=== PATIENT | female | born 1970 | race Caucasian/White ===

== ENCOUNTER 2021-11-22 02:16 | Day surgery (SDC) | payer BC, SELFPAY ==
[2021-11-04 13:27] VITALS: BMI 27.1
[2021-11-22 08:13] VITALS: BP 116/59; PULSE 70; RESP 20; TEMP 36.2; O2SAT 100; BMI 25.5
[2021-11-22] MEDS: LACTATED RINGERS 1,000 ML 150 ML IV CONT (08:20)
--- NOTE | 2021-11-22 08:43 | P.PNAN_ITS ---
Anes - Initial Pre Proc Eval Procedure: Operation Date: 11/22/21 09:00 Proposed Procedures p Screening Colonoscopy - Alvaro Cruz MD Date/Time: 11/22/21 08:43 Surgeon: Alvaro Cruz MD Pre Op Diagnosis: neoplasm screening Patient Data Age: 51 Gender: F Height: 1.78 m Weight: 80.9 kg Last Vital Signs Temp 97.2 F L 11/22/21 08:13 Pulse 70 11/22/21 08:13 Resp 20 11/22/21 08:13 BP 116/59 L 11/22/21 08:13 Pulse Ox 100 11/22/21 08:13 O2 Del Method Room Air 11/22/21 08:13 Allergies Allergy/AdvReac Type Severity Reaction Status Date / Time No Known Allergies Allergy Verified 11/22/21 08:12 Home Medications Medication Instructions Recorded Confirmed Type multivitamin 1 tablet PO DAILY 09/07/20 11/04/21 History Patient hx anesthesia problems: none Family hx anesthesia problems: none Results Review: All pre-operative results and documents have been reviewed as part of the pre- operative evaluation. [facility] Past Medical History Medical History Hip pain Vision loss Surgical History Surgical History H/O LEEP History of hip surgery right side 01/07/19 Left ACL tear 1sept 1997 Lump of right breast may 2009 Family History Family History Father Family history of Parkinson's disease Mother Thyroid disorder Sibling Thyroid disorder Grandparent Heart disease Thyroid disorder Other Family history of cardiovascular disease Family history of thyroid disease Social History Social History Smoking status: Never smoker Second hand tobacco smoke exposure: No Alcohol intake: current Drinks per week: 1 Alcohol use details: beer Substance use: never Substance use type: does not use Living arrangements: with family Gender identity (if verbalized by the patient): Female Spiritual care concerns: No Agree to blood products: Yes Anes - Eval Final PreProcedure Day of Procedure 11/22/21 08:43 Patient weight: normal Heart: regular rate and rhythm Lungs: clear to auscultation Airway: Mallampati scale class II Neurological: alert and oriented Last oral intake: >/= 8 hours ASA classification: II Emergent: no Anesthetic plan: proceed Anesthesia type and monitoring: general GIVS and standard monitoring Results Review: All pre-operative results and documents have been reviewed as part of the pre- operative evaluation. Informed Consent: The patient's anesthetic plan and its attendant risks and benefits were discussed with the patient/family/POA. Questions were solicited and answers provided to the satisfaction of the patient/family/POA.
--- NOTE | 2021-11-22 08:48 | WPDGICN ---
Assessment and Plan Assessment and plan (1) Encounter for screening colonoscopy: Code(s): Z12.11 - Encounter for screening for malignant neoplasm of colon Status: Acute Assessment and Plan: Patient presents today for screening colonoscopy. She appears to be at average risk for colon polyps. GI Consult Note Consult date/time: 11/22/21 08:48 Reason for consult: Neoplasia screening. HPI: Katarina Choi is a 51 year old female Presents for screening colonoscopy. Patient appears to be at average risk for colon polyps. She states her current weight appetite bowel movements are normal. Patient denies abdominal pain. She has had no bleeding. Family history is noncontributory. Review of Systems Review of Systems: Review of systems noncontributory. [facility] Past Medical History Medical History Hip pain Vision loss Surgical History Surgical History H/O LEEP History of hip surgery right side 01/07/19 Left ACL tear 1s1997 Lump of right breast may 2009 Family History Family History Father Family history of Parkinson's disease Mother Thyroid disorder Sibling Thyroid disorder Grandparent Heart disease Thyroid disorder Other Family history of cardiovascular disease Family history of thyroid disease Social History Social History Smoking status: Never smoker Second hand tobacco smoke exposure: No Alcohol intake: current Drinks per week: 1 Alcohol use details: beer Substance use: never Substance use type: does not use Living arrangements: with family Gender identity (if verbalized by the patient): Female Spiritual care concerns: No Agree to blood products: Yes Meds Home Medications and Allergies Home Medications Medication Instructions Recorded Confirmed Type multivitamin 1 tablet PO DAILY 09/07/20 11/04/21 History Allergies Allergy/AdvReac Type Severity Reaction Status Date / Time No Known Allergies Allergy Verified 11/22/21 08:12 Vital Signs Vital Signs - 24 hr 11/22/21 08:13 Temperature 97.2 F L Pulse Rate 70 Respiratory Rate 20 Blood Pressure 116/59 L Pulse Oximetry 100 Oxygen Delivery Room Air Exam Narrative: Physical exam reveals patient to be alert. Vital signs stable. HEENT exam is unremarkable. Patient is anicteric. Lungs are clear to auscultation and percussion. Heart is without murmur or extra sounds. Abdominal exam bowel sounds are present soft nontender with no organomegaly. Digital external rectal exam is normal.
[2021-11-22 09:15] VITALS: BP 94/59; PULSE 59; RESP 20; O2SAT 99
[2021-11-22 09:25] VITALS: BP 94/59; PULSE 58; RESP 21; O2SAT 99
[2021-11-22 09:35] VITALS: BP 194/58; PULSE 52; RESP 19; O2SAT 100
== END 2021-11-22 09:46 | disposition home or self-care (01) ==
PROVIDERS: PCP Family Medicine; Visit Provider Internal Medicine Gastroenterology
PROC: 0DJD8ZZ Inspection of Lower Intestinal Tract, Via Natural or Artificial Opening Endoscopic (ICD-10-PCS; CPT 45378; principal; 2021-11-22 09:00)
DX: Z12.11 Encounter for screening for malignant neoplasm of colon (principal)
CPT/HCPCS: 45378; J2704; J7120

== ENCOUNTER 2023-11-20 09:02 | Outpatient (CLI) | payer OTHER, SELFPAY ==
--- NOTE | ~2023-11-20 | CT_ITS ---
EXAMINATION: CT knee LT wo con DATE: 11/20/2023 09:20 INDICATION: Unilateral posttraumatic osteoarthritis, left knee. TECHNIQUE: Computed tomography (CT) of the left knee was performed without intravenous contrast. Auto mated exposure control and iterative reconstruction technique were employed. The dose-length product was 192.19 mGy-cm. COMPARISON: Left knee radiographs 01/05/2023 FINDINGS: There is lateral subluxation of tibia with respect to distal femur. No fracture. There are changes of anterior cruciate ligament reconstruction. The orientation of the bones suggests the graft is torn. There is severe osteoarthritis of lateral compartment and mild osteoarthritis of medial and patellofemoral compartments. There is a moderate-sized knee joint effusion with large loose body. Th ere is a large Núñez's cyst. IMPRESSION: 1. Severe left knee osteoarthritis. 2. Torn anterior cruciate ligament reconstruction. 3. Moderate-sized knee joint effusion with loose body. 4. Large Núñez's cyst. Reviewed, dictated and finalized at location A.
== END 2023-11-20 09:03 ==
PROVIDERS: PCP Orthopaedic Surgery; Visit Provider Orthopaedic Surgery
DX: M17.32 Unilateral post-traumatic osteoarthritis, left knee (principal); S83.512A Sprain of anterior cruciate ligament of left knee, initial encounter; M25.462 Effusion, left knee; M23.42 Loose body in knee, left knee; M71.22 Synovial cyst of popliteal space [Baker], left knee
CPT/HCPCS: 73700

== ENCOUNTER 2024-04-05 13:59 | Outpatient (CLI) | payer OTHER, SELFPAY ==
[2024-04-05 15:52] LABS: Add Urine Microscopic? YES; Appearance Urine Clear (Clear); Bacteria Urine None Seen /hpf; Bilirubin Urine Negative (Negative); Blood Urine 1+ (Negative); Color Urine Yellow (Yellow); Glucose Urine UA Negative (Negative); Ketones Urine Negative (Negative); Leukocyte Esterase Ur Negative LEU/UL (Negative); Nitrate Urine Negative (Negative); Non Pathogenic Casts 0-2; Protein Urine Negative (Negative); RBC Urine 0-2 /hpf (0-2); Specific Grav Ur 1.006 (1.001-1.035); Squamous Epithelial Cell Urine None Seen /hpf (Few); Urobilinogen Urine 0.2 mg/dL (<2.0); WBC Urine 0-5 /hpf (0-3); pH Urine 5.5 (5.0-9.0)
[2024-04-05 15:54] LABS: Urine Cotinine NEGATIVE
[2024-04-05 16:13] LABS: INR 0.9; Partial Thromboplastin Time 27.9 Seconds (22.3-36.8)
[2024-04-05 16:54] LABS: MRSA (PCR) NOT DETECTED (NOT DETECTE)
== END 2024-04-05 14:00 | disposition home or self-care (01) ==
PROVIDERS: Visit Provider Orthopaedic Surgery
DX: Z01.812 Encounter for preprocedural laboratory examination (principal); M17.12 Unilateral primary osteoarthritis, left knee; I10 Essential (primary) hypertension; R53.83 Other fatigue
CPT/HCPCS: 80307; 81001; 85610; 85730; 86850; 86900; 86901; 87641

== ENCOUNTER 2024-04-18 14:56 | Observation (INO) | payer OTHER, SELFPAY ==
[2024-04-05 14:26] VITALS: BP 141/80; PULSE 57; RESP 16; TEMP 36.4; O2SAT 100; BMI 26.9
--- NOTE | 2024-04-05 14:42 | PC.NURSE ---
Report to the Outpatient Waiting Room, entrance under the green pavilion located off [facility], at time ___8:30AM____ on date ___04/17/24____. Planned Procedure Time: __10:30AM .? Time changes happen often and if your time is changed the preop area will call you the afternoon before. - You and your visitor will be asked to self-screen and do not enter if you have any COVID symptoms. Please call surgeon if you need to reschedule. - A mask is optional within the hospital at this time. Patients may have clear liquids (water, carbonated beverages, clear teas, apple juice) until 3 hours prior to surgery with a maximum of 20 ounces. - No food from midnight until time of surgery and no smoking. Take only the following medications with a SIP of water on the morning of surgery: NONE DO NOT STOP ANY OF YOUR OTHER PRESCRIPTION MEDICATIONS PRIOR TO SURGERY EXCEPT THE FOLLOWING Medications to discontinue per physician HOLD ALL VITAMINS/SUPPLEMENTS 3 DAYS PER ANESTHESIA Date to take last dose 04/13/24 Please no make-up, nail romansh, hairspray, perfume, deodorant, or body powder the day of surgery.? No jewelry (including any body piercings) or valuables the day of surgery, leave them at home.? Please take a shower or bath the night before, or the morning of, surgery with an antibacterial soap.? Wear comfortable, loose fitting clothing.? - Jewelry must be removed prior to entering the operating room.? Rings and piercings that are not removed may be cut off. - The hospital will not accept responsibility for valuables.? - Please leave all valuables, including medications, at home the day of surgery. If you are going home after surgery, a licensed concrete mixing truck driver must drive you home.? - NO public transportation without another adult if you receive anesthesia. - We recommend that an adult stay with you for 24 hours following discharge. - We also recommend that you do not drive, make important decision, drink alcoholic beverages, or take any drugs that were not prescribed by your health care provider for at least 24 hours after your discharge time. Follow any additional instructions given to you from your surgeon. Telephone instructions given to ____PATIENT and asked if any additional questions and then verbalized understanding. Patient advised to call surgeon office or pre surgery nurse liaison [phone] if any additional questions.
[2024-04-17] VITALS (9 sets, daily range): BP systolic 116–139; BP diastolic 67–80; PULSE 58–79; RESP 12–18; TEMP 36.4–36.7; O2SAT 98–100
--- NOTE | 2024-04-17 07:04 | WPDHPUPDATE1 ---
History and Physical Update Update Date/Time: 04/17/24 07:04 History and Physical has been reviewed, including an updated exam of the patient. There are NO changes in the patient's condition. Risks, benefits, and alternatives have been discussed and questions answered. Patient agrees to proceed with procedure.
[2024-04-17] MEDS: ACETAMINOPHEN 500 MG TABLET 1000 MG PO (08:56)
[2024-04-17] MEDS: LACTATED RINGERS 1,000 ML 30 ML IV CONT ×2 (09:15→13:41)
[2024-04-17] MEDS: TRANEXAMIC ACID 1,000MG/ISO100 1,000 MG/100 ML BAG 200 MG IVPB (10:10)
--- NOTE | 2024-04-17 10:25 | WPDANESPNB ---
Anes - Peripheral Nerve Block Date/Time: 04/17/24 10:25 I have discussed with the patient/family/POA the placement of a peripheral nerve block for post-operative pain management, including associated risks, benefits, complications, and side effects. Alternative methods of post-operative analgesia were detailed. Questions were solicited and answers provided to the satisfaction of the patient/family/POA. Time-Out: A pre-procedural Time-Out was completed immediately before starting the procedure and confirmed: Patient Identification, Site, Procedure, Patient Position and the Availability of Requisite Equipment. Clinical Indications: Acute post-operative pain management requested by the operative surgeon. Nerve Block Insertion Note Anes-nerve block: adductor canal left Patient position: supine Skin prep: chlorhexidine Needle: 22 gauge, stimulating, insulated echogenic needle. Needle length: 80 mm Technique: ultrasound Injectate: other (Bupiv 0.5% 15 mls. ) Observations: tolerated well Complications: none Procedure start time:: 101 Procedure end time:: 1020
--- NOTE | 2024-04-17 10:33 | P.PNAN_ITS ---
Anes - Initial Pre Proc Eval Procedure: Operation Date: 04/17/24 10:30 Proposed Procedures p Left Total Knee Arthroplasty, Removal of Hardware Left Knee - Filippo Ca MD Date/Time: 04/17/24 10:33 Surgeon: Filippo Ca MD Pre Op Diagnosis: Left Knee DJD Patient Data Age: 54 Gender: F Height: 1.78 m Weight: 85.15 kg Last Vital Signs Temp 97.7 F 04/17/24 09:17 Pulse 62 04/17/24 09:17 Resp 16 04/17/24 09:17 BP 135/72 04/17/24 09:17 Pulse Ox 100 04/17/24 09:17 O2 Del Method Room Air 04/17/24 09:17 Allergies Allergy/AdvReac Type Severity Reaction Status Date / Time No Known Allergies Allergy Verified 04/17/24 08:38 Home Medications Medication Instructions Recorded Confirmed Type chlorhexidine gluconate 4 % 1 applic topical DAILY #237 mL 04/05/24 04/17/24 Rx topical liquid (Hibiclens) ferrous sulfate 325 mg (65 mg 325 mg PO EVERY OTHER DAY 04/05/24 04/17/24 History iron) capsule,extended release [id number] 250 mg-dha 90 1 cap PO DAILY 04/05/24 04/17/24 History mg-epa 160 [id number] capsule (Ocuvite Adult 50 Plus) multivitamin with minerals-folic 2 tablet PO DAILY 04/05/24 04/17/24 History acid 150 mcg chewable tablet tranexamic acid 650 mg tablet 1,300 mg PO TID 04/05/24 04/17/24 History Patient hx anesthesia problems: none Family hx anesthesia problems: none Results Review: All pre-operative results and documents have been reviewed as part of the pre- operative evaluation. [facility] Past Medical History Medical History Hip pain Vision loss Surgical History Surgical History H/O LEEP History of colonoscopy 11/22/21 - repeat 10 years History of hip surgery right side 01/07/19 Left ACL tear 1sept 1997 Lump of right breast may 2009 Family History Family History Father Family history of Parkinson's disease Mother Thyroid disorder Sibling Thyroid disorder Grandparent Heart disease Thyroid disorder Other Family history of cardiovascular disease Family history of thyroid disease Social History Social History Smoking status: Never smoker Second hand tobacco smoke exposure: No Alcohol intake: current Drinks per week: 2 Alcohol use details: beer Substance use: never Substance use type: does not use Living arrangements: with family Additional living arrangements comments: SPOUSE & DAUGHTER Occupation/Education: occupation Gender identity (if verbalized by the patient): Female Spiritual care concerns: No Agree to blood products: Yes Anes - Eval Final PreProcedure Day of Procedure 04/17/24 10:33 Patient weight: normal Heart: regular rate and rhythm Lungs: clear to auscultation Airway: Mallampati scale class II Neurological: alert and oriented Last oral intake: >/= 8 hours ASA classification: I Emergent: no Anesthetic plan: proceed Anesthesia type and monitoring: general LMA and standard monitoring Results Review: All pre-operative results and documents have been reviewed as part of the pre- operative evaluation. Overall good health. Informed Consent: The patient's anesthetic plan and its attendant risks and benefits were discussed with the patient/family/POA. Questions were solicited and answers provided to the satisfaction of the patient/family/POA.
[2024-04-17] MEDS: ceFAZolin 2 GM/D5W 50 ML 2 GM/50 ML BAG IVPB ×2 (10:41→18:09)
[2024-04-17] MEDS: SODIUM CHLORIDE 0.9% IV 37.7 ML, MORPHINE SULFATE INJ (*CRX) 2 MG, ROPivacaine HCL 1% 2... INFILTRATE (11:17)
[2024-04-17] MEDS: TRANEXAMIC ACID 1,000 MG/10 ML AMPUL 1000 MG IV PUSH (12:39)
--- NOTE | 2024-04-17 13:59 | W.PM.PROC2 ---
Procedure Note - Detailed Date of Procedure 04/17/24 Pre-op Diagnosis Left Knee DJD, RETAINED HARDWARE Post-op Diagnosis Same Procedure Performed LEFT TKA, HARDWARE REMOVAL LEFT KNEE Surgeon Filippo Ca MD Anesthesia General Indications LEFT KNEE SEVERE DJD WITH RETAINED HARDWARE Description of Procedure THE LEFT KNEE WAS PREPPED AND DRAPED IN THE STERILE FASHION. A MIDLINE SKIN INCISION WAS MADE. A MEDIAL PARAPATELLAR ARTHROTOMY WAS MADE. THE HARDWARE ON THE PROXIMAL TIBIA WAS EXPOSED AND THE SCREW AND WASHER WERE REMOVED IN THEIR ENTIRETY. THE SCREW HOLE WAS CURETTED AND IRRIGATED THOROUGHLY. ETHIBOND SUTURES WERE REMOVED WELL. THE PATELLA WAS THEN EVERTED. THERE WAS TRICOMPARTMENT DJD. AN INTRAMEDULLARY BANDAR WAS PLACED IN THE FEMUR. A DISTAL FEMORAL CUT WAS MADE IN 5 DEGREES OF VALGUS REMOVING APPROXIMATELY 8 MM OF BONE FROM THE DISTAL FEMUR. THE FEMUR WAS SIZED TO 4. A 4 FEMORAL CUTTING BLOCK WAS PLACED IN 3 DEGREES OF EXTERNAL ROTATION AND IN ALIGNMENT WITH JUSTIN'S LINE AND THE TRANSEPICONDYLAR AXIS. ANTERIOR POSTERIOR AND CHAMFER CUTS WERE MADE. THE CUTS WERE EXCELLENT. NEXT AN INTRAMEDULLARY CUTTING GUIDE WAS PLACED IN THE TIBIA. A TRANS TIBIAL CUT WAS MADE ALONG THE LONG AXIS OF THE TIBIA. APPROXIMATELY 8 OF BONE WAS REMOVED FROM THE HIGH SIDE OF THE TIBIA. POSTERIOR FEMORAL OSTEOPHYTES WERE REMOVED FROM THE FEMORAL CONDYLES. A 4 TIBIAL TRIAL WAS PLACED IN ALIGNMENT WITH THE 1/3 MEDIAL ASPECT OF THE TIBIAL TUBERCLE. THEN A 6 FEMORAL TRIAL COMPONENT WAS PLACED. BOTH HAD EXCELLENT FITS. EVENTUALLY A 14 MM CS POLYETHYLENE TRIAL COMPONENT WAS PLACED. THE KNEE WAS TAKEN THROUGH A RANGE OF MOTION. THE KNEE CAME OUT TO FULL EXTENSION. THERE WAS NO ABNORMAL TILT TO THE PATELLA. THERE WAS GOOD A/P AND VARUS/VALGUS STABILITY. THERE WAS NO EXCESSIVE ROLL BACK WITH FLEXION. THE TRIAL COMPONENTS WERE REMOVED. THEN A ISHAN TRIATHLON 4 FEMORAL COMPONENT AND 4 TIBIAL COMPONENT WITH A 14 CS POLYETHYLENE COMPONENT WERE PRESS FIT INTO PLACE. THE KNEE WAS TAKEN THROUGH A ROM AGAIN AND FOUND TO BE STABLE WITH NO PATELLA TILT NO EXCESSIVE ROLL BACK WITH FLEXION AND GOOD STABILITY WITH COMPLETE AND FULL EXTENSION. THE KNEE WAS IRRIGATED WITH STERILE BETADINE AND WATER FOR ABOUT 3 MINUTES. THE BLEEDERS WERE CAUTERIZED. THE ARTHROTOMY WAS REPAIRED WITH NUMBER 1 VICRYL. THE SUB CUTANEOUS LAYER WITH 2-0 VICRYL AND THE SKIN WITH DERMABOND. THE WOUND WAS WASHED AND A STERILE DRESSING WAS APPLIED. PATIENT WAS EXTUBATED. Estimated Blood Loss 150 Pathology None sent Complications No immediate complications Disposition PACU
--- NOTE | 2024-04-17 15:07 | ADMGEN ---
This patient, Katarina Choi, was admitted to 2 Medical Room 240-01. Patient/family oriented to hospital policies and general routines including ID bracelet, bed and alarms, visiting hours, pain management, procedures, bathroom and other care routines, personal items, smoking policy, room service/diet, and visiting hours. Information on how to activate the Rapid Response Team has been discussed. Patient/Family are encouraged to report perceived risks to care and to ask questions if they do not understand what they are told or what they should do.
[2024-04-17] MEDS: KETOROLAC 15 MG/ML VIAL (*BKC) IV PUSH ×2 (15:09→23:40)
[2024-04-17] MEDS: SENNA/DOCUSATE SODIUM TABLET 2 TAB PO (16:58)
[2024-04-17] MEDS: oxyCODONE/ACETAMINOPHEN (*CRX) 5-325 MG TABLET 1 TABLET PO (20:11)
[2024-04-17] MEDS: FAMOTIDINE 20 MG TABLET PO (20:11)
[2024-04-17] MEDS: ASPIRIN 325 MG ENTERIC TABLET PO (20:11)
[2024-04-18] VITALS (13 sets, daily range): BP systolic 94–134; BP diastolic 42–75; PULSE 60–89; RESP 14–18; TEMP 36.4–37; O2SAT 98–100
--- NOTE | ~2024-04-18 | XR_ITS ---
[id number] Ordering provider: Filippo Ca MD History: . POST-OP, LEFT TKA . Comparison: None. FINDINGS: BONES: No acute fracture or dislocation. A screw is seen most likely previous ACL reconstruction. JOINT SPACES: Total knee arthroplasty. SOFT TISSUES: Postoperative changes in the soft tissues. IMPRESSION: No acute osseous abnormality left knee. Total knee arthroplasty. Reviewed, dictated and finalized at location A. [employer]
[2024-04-18] MEDS: ceFAZolin 2 GM/D5W 50 ML 2 GM/50 ML BAG IVPB ×2 (03:32→10:51)
[2024-04-18] MEDS: oxyCODONE/ACETAMINOPHEN (*CRX) 5-325 MG TABLET 1 TABLET PO ×2 (03:38→08:09)
[2024-04-18 06:16] LABS: Basophils Absolute Auto 0.1 K/mm3 (0.0-0.1); Basophils Percent Auto 0.5 % (0.2-1.2); Eosinophils Absolute Auto 0.1 K/mm3 (0-0.3); Eosinophils Percent Auto 0.5 % (0-4.4); Hematocrit 27.3 % (37.0-47.0); Hemoglobin 8.5 g/dL (12.0-15.0); Immature Granulocyte Absolute 0.04 K/mm3 (0.00-0.031); Immature Granulocyte Percent A 0.4 % (0-0.5); Lymphocytes Absolute Auto 2.14 K/mm3 (0.9-3.2); Lymphocytes Percent Auto 21.8 % (18.3-44.2); Mean Corpuscular HGB Conc 31.1 g/dl (32-36); Mean Corpuscular Hemoglobin 26.4 pg (26-34); Mean Corpuscular Volume 84.8 fl (80-100); Mean Platelet Volume 10.5 fl (7.4-10.4); Monocytes Absolute Auto 0.9 K/mm3 (0.1-0.6); Monocytes Percent Auto 9.4 % (2.6-8.5); Neutrophils Absolute Auto 6.6 K/mm3 (1.3-6.7); Neutrophils Percent Auto 67.4 % (45.5-73.1); Platelet Count Result 268 k/mm3 (150-375); Red Blood Count 3.22 M/mm3 (4.2-5.4); Red Cell Distribution Width 18.7 % (11.5-14.5); White Blood Count 9.8 K/mm3 (4.5-10.0)
[2024-04-18] MEDS: KETOROLAC 15 MG/ML VIAL (*BKC) IV PUSH ×2 (06:16→17:11)
[2024-04-18 06:39] LABS: Anion Gap 2 mmol/L (4-12); Blood Urea Nitrogen 10 mg/dL (7-17); Calcium 8.2 mg/dL (8.4-10.2); Carbon Dioxide 27 mmol/L (22-30); Chloride 105 mmol/L (98-107); Estimated CRCL calculation 84 ml/min; Estimated Glomerular Filt Rate > 60; Glucose 111 mg/dL (65-110); Potassium 3.7 mmol/L (3.4-5.0); Sodium 134 mmol/L (137-145)
[2024-04-18] MEDS: ASPIRIN 325 MG ENTERIC TABLET PO ×2 (08:08→21:25)
[2024-04-18] MEDS: polyethylene glycoL 3350 17 GM POWD.PACK PO (08:09)
[2024-04-18] MEDS: SENNA/DOCUSATE SODIUM TABLET 2 TAB PO ×2 (08:09→17:12)
[2024-04-18] MEDS: FAMOTIDINE 20 MG TABLET PO ×2 (08:09→21:22)
--- NOTE | 2024-04-18 09:11 | PM.PNORT ---
Progress Note: A&P Assessment and Plan (1) S/P total knee arthroplasty: Qualifiers: Laterality: left Qualified Code(s): Z96.652 - Presence of left artificial knee joint Code(s): Z96.659 - Presence of unspecified artificial knee joint Status: Acute Assessment and Plan: POD #1 : Left TKA Continue PT/OT. WBAT. Walker. HIGH FALL RISK. Continue pain control. Ice Knee. Protect skin. DVT prophylaxis with Aspirin. SCDs. Incentive Spirometry Use reviewed. Monitor Dressing. Change prior to discharge. Bowel Regimen. Dispo: Home with Home Health pending progress with PT/OT Plan Reviewed history, exam, radiographs and current labs with attending MD and covering surgeon, Dr. Ca, who agrees with current plan as indicated above. No further recommendations from Dr. Ca at this time. Subjective Subjective Date/Time Seen: 04/18/24 09:11 Post Op day: 1 Principal diagnosis: Left Knee DJD Interval history: POD #1: Left TKA Patient doing well. Pain well controlled. No new concerns today. Hopeful for d/c home today. Awaiting PT/OT. Review of Systems Review of Systems: All systems reviewed & are unremarkable except as noted in HPI and below Constitutional: Constitutional: Denies fever(s) and Denies headache(s) ENT: Denies headache(s) Cardiovascular: Cardiovascular: Denies chest pain, Denies diaphoresis, Reports lightheadedness, Denies palpitations and Denies dyspnea Respiratory: Respiratory: Denies dyspnea Gastrointestinal: Gastrointestinal: Denies abdominal pain, Denies constipation, Denies nausea and Denies vomiting Genitourinary: Genitourinary: Reports nocturia and Denies dysuria Musculoskeletal: Musculoskeletal: Reports arthralgias (Left Knee ), Reports joint swelling (Left Knee ) and Reports limited range of motion (ROM limited due to recent surgical intervention LEFT Knee ) Neurologic: Reports dizziness (with standing x1 this AM ) and Denies headache(s) Endocrine: Endocrine: Denies palpitations Exam Const: General: comfortable and no acute distress Resp: Effort & Inspection: normal respiratory effort Cardio: Rate: regular rate Rhythm: regular rhythm GI: GI Palp: Yes Soft to palpation, No Tenderness to palpation present (GI) and No Guarding due to palpation present (GI) Skin: General skin exam: wounds noted (see extremity assessment ) Wounds: wounds noted (see extremity assessment ) Neuro: Cognition (Neuro): normal cognition Other: NV intact aside from block. Moves toes. Sensation intact to light touch. +ankle dorsiflexion/plantarflexion. Extrem: Left lower extremity: normal to inspection, normal capillary refill, knee Details: tenderness (diffuse ) Location: of the patella, swelling (moderate consistent to recent surgery ), abnormal ROM (limited due to recent surgery ) Details: pain with active ROM and pain with passive ROM and ecchymosis (as expected with recent surgery. NO hematoma. ), lower leg (Negative Rosa's Sign ), ankle (+ankle dorsiflexion/plantarflexion ) Details: normal to inspection, no edema and normal ROM; no tenderness and no swelling and foot Details: normal capillary refill, toes with normal ROM, vascular exam Details: dorsalis pedis pulse present and motor-sensory exam light-touch normal; no tenderness Other: Incision left TKA dressing c/d/i. No hematoma. No signs of infection. No wound dehiscence. Psych: Mental Status: mental status grossly normal Objective Data Vital Signs Vital Signs: Vital Signs - 24 hr 04/17/24 09:17 04/17/24 13:41 04/17/24 14:05 Temperature 36.5 C 36.7 C Pulse Rate 62 79 Respiratory Rate 16 14 Blood Pressure 135/72 124/79 Pulse Oximetry 100 100 Oxygen Delivery Room Air Simple Face Mask Room Air Oxygen Flow Rate 6 04/17/24 14:10 04/17/24 13:55 04/17/24 14:25 Temperature Pulse Rate 63 63 67 Respiratory Rate 14 14 14 Blood Pressure 125/76 116/67 130/72 Pulse Oximetry 100 100 100 Oxygen Delivery Room Air Simple Face Mask Room Air Oxygen Flow Rate 6 04/17/24 14:40 04/17/24 15:02 04/17/24 15:41 Temperature 36.7 C Pulse Rate 58 L 65 Respiratory Rate 16 14 Blood Pressure 135/80 139/74 Pulse Oximetry 98 99 Oxygen Delivery Room Air Room Air Oxygen Flow Rate 04/17/24 16:32 04/17/24 20:00 04/17/24 20:32 Temperature 36.6 C 36.4 C L Pulse Rate 64 64 Respiratory Rate 12 18 Blood Pressure 121/74 128/67 Pulse Oximetry 100 100 Oxygen Delivery Room Air Oxygen Flow Rate 04/18/24 00:32 04/18/24 04:32 Temperature 37.0 C 36.7 C Pulse Rate 67 71 Respiratory Rate 18 18 Blood Pressure 104/52 L 107/54 L Pulse Oximetry 98 98 Oxygen Delivery Oxygen Flow Rate Intake/Output Intake/Output: Intake & Output 04/15/24 04/16/24 04/17/24 04/18/24 23:59 23:59 23:59 23:59 Intake Total 490 50 Balance 490 50 Meds/Results Medications: Active Medications Generic Name Dose Route Start Last Admin Trade Name Freq PRN Reason Stop Dose Admin Acetaminophen 500 mg 04/17/24 14:47 Acetaminophen 500 Mg Tablet PO Q6H PRN Pain Rated 1-3 Aspirin 325 mg 04/17/24 21:00 04/18/24 08:08 Aspirin 325 Mg Enteric Tablet PO 325 mg Q12HR DANNY Administration Diazepam 5 mg 04/17/24 14:47 Diazepam (*Crx) 5 Mg Tablet PO Q8H PRN Spasms Diphenhydramine HCl 25 mg 04/17/24 14:47 Diphenhydramine Hcl Inj 50 Mg/Ml Vial IV PUSH Q6H PRN Itching Famotidine 20 mg 04/17/24 21:00 04/18/24 08:09 Famotidine 20 Mg Tablet PO 20 mg Q12HR DANNY Administration Hydromorphone HCl 1 mg 04/17/24 14:47 Hydromorphone Hcl Inj (*Crx) 1 Mg/Ml Syr IV PUSH Q2H PRN Breakthrough Pain Rated 7-10 or NPO Hydromorphone HCl 0.5 mg 04/17/24 14:47 Hydromorphone Hcl Inj (*Crx) 1 Mg/Ml Syr IV PUSH Q2H PRN Breakthrough Pain Rated 4-6 or NPO Cefazolin Sodium 2 gm in 50 mls @ 100 mls/hr 04/17/24 19:00 04/18/24 04:02 Ancef 2 Gm/D5w 50 Ml IVPB 04/18/24 11:29 Infused Q8H DANNY Infusion Ibuprofen 800 mg in 200 mls @ 400 mls/hr 04/17/24 14:47 Caldolor 800 Mg/200 Ml IVPB Q6H PRN Breakthrough Pain Rated 1-3 or NPO Ketorolac Tromethamine 15 mg 04/17/24 14:47 04/18/24 06:16 Ketorolac 15 Mg/Ml Vial (*Bkc) IV PUSH 04/18/24 18:01 15 mg Q6HR DANNY Administration Naloxone HCl 0.1 mg 04/17/24 14:47 Naloxone Hcl 0.4 Mg/Ml Vial IV PUSH Q2M PRN Opiate Reversal Ondansetron HCl 4 mg 04/17/24 14:47 Ondansetron Inj 4 Mg/2 Ml Vial IV PUSH Q4H PRN Nausea And Vomiting Oxycodone/Acetaminophen 1 tablet 04/17/24 14:47 04/18/24 08:09 Oxycodone/Acetaminophen (*Crx) 5-325 Mg Tablet PO 1 tablet Q4H PRN Administration Pain Rated 4-6 Oxycodone/Acetaminophen 1 tab 04/17/24 14:47 Oxycodone/Acetaminophen (*Crx) 10-325 Mg Tablet PO Q6H PRN Pain Rated 7-10 Polyethylene Glycol 17 gm 04/18/24 09:00 04/18/24 08:09 Polyethylene Glycol 3350 17 Gm Powd.Pack PO 17 gm QAM DANNY Administration Senna/Docusate Sodium 2 tab 04/17/24 17:00 04/18/24 08:09 Senna/Docusate Sodium Tablet PO 2 tab BID DANNY Administration Radiology Results: ITS Impressions Knee X-Ray 04/17/24 14:15 IMPRESSION: No acute osseous abnormality left knee. Total knee arthroplasty. Labs Labs: Laboratory Results - last 24 hr 04/18/24 05:26 WBC 9.8 RBC 3.22 L Hgb 8.5 L Hct 27.3 L MCV 84.8 MCH 26.4 MCHC 31.1 L RDW 18.7 H Plt Count 268 MPV 10.5 H Immature Gran % (Auto) 0.4 Neut % (Auto) 67.4 Lymph % (Auto) 21.8 O'Brien % (Auto) 9.4 H Eos % (Auto) 0.5 Baso % (Auto) 0.5 Lymph # (Auto) 2.14 O'Brien # (Auto) 0.9 H Eos # (Auto) 0.1 Baso # (Auto) 0.1 Abs Immat Gran (auto) 0.04 H Absolute Neuts (auto) 6.6 Absolute Nucleated RBC 0.000 Nucleated RBC % 0.0 Sodium 134 L Potassium 3.7 Chloride 105 Carbon Dioxide 27 Anion Gap 2 L BUN 10 Creatinine 0.70 Estim Creat Clear Calc 84 Estimated GFR > 60 Glucose 111 H Calcium 8.2 L Quality VTE Prophylaxis VTE prophylaxis: pharmacologic ordered
[2024-04-18 09:37] LABS: Glucose Point of Care 77 mg/dl (65-105)
--- NOTE | 2024-04-18 09:51 | PM.DS ---
DS: Summary Time Spent with Patient Time attestation: Total time spent providing and/or coordinating discharge services: DS: Data Data Completed and Pending Labs on day of discharge: Labs from last 24 hours 04/18/24 04/18/24 09:32 05:26 WBC 9.8 RBC 3.22 L Hgb 8.5 L Hct 27.3 L MCV 84.8 MCH 26.4 MCHC 31.1 L RDW 18.7 H Plt Count 268 MPV 10.5 H Immature Gran % (Auto) 0.4 Neut % (Auto) 67.4 Lymph % (Auto) 21.8 [place] % (Auto) 9.4 H Eos % (Auto) 0.5 Baso % (Auto) 0.5 Lymph # (Auto) 2.14 [place] # (Auto) 0.9 H Eos # (Auto) 0.1 Baso # (Auto) 0.1 Abs Immat Gran (auto) 0.04 H Absolute Neuts (auto) 6.6 Absolute Nucleated RBC 0.000 Nucleated RBC % 0.0 Sodium 134 L Potassium 3.7 Chloride 105 Carbon Dioxide 27 Anion Gap 2 L BUN 10 Creatinine 0.70 Estim Creat Clear Calc 84 Estimated GFR > 60 Glucose 111 H POC Capillary Glucose 77 Calcium 8.2 L Discharge Plan Discharge Patient Disposition: Home Health Service Discharge Instructions: Per Care Coordination: Patient to have [facility] for RN/PT/OT eval and alcira [phone]. They will contact patient to arrange first visit. Post Op Total Knee Replacement Instructions Dr. Filippo Ca [phone] Your dressing will be changed prior to your discharge. You will be sent home with one additional dressing to be changed on post op day 7 by the home health RN. Your noah will be removed on the 14th day after surgery and steri-strips will be placed. Please practice good hand hygiene and do not touch your incision in order to prevent infection. You may shower with your dressing but do not submerge in a bath tub. Do not drive or operate machinery until you are released by Dr. Ca. Do not walk without a walker for any reason until you are released by Dr. Ca. Continue to use your ice machine. Please use a towel or pillow case to protect your skin before applying your ice machine. Do NOT place a pillow under your knee. You may use a pillow from the calf down if needed. This will prevent a flexion contracture postoperatively. CPM: You may begin use of your CPM machine at home if you have been given one pre-operatively. DO NOT USE WHILE YOU ARE SLEEPING. ROMTech: If you were given a ROMTech Portable Connect System preoperatively, you are to begin use on the day you arrive home postoperatively. Our goal is for you to use the machine 5 times per day. The sessions are very short in the beginning and will progress as you progress. We are able to monitor your progress from afar as well as your pain and other reported symptoms. If you have difficulties with the machine, please call . NOTE: Please attempt to use the machine even when in pain as this will reagent tender helper your therapy with very gentle motion. Your first post op appointment was sent to you via mail preoperatively. If you have any questions or are unable to make your appointment, please contact our office for scheduling questions. Your medications have been sent to your pharmacy. You have been sent home with pain medication. Please fruit or nut picker an over the counter stool softener to prevent constipation due to narcotic use. Please keep this in mind during your postoperative recovery. If you are not experiencing regular bowel movements, please contact our office for further instruction. Please contact our office with any questions/concerns regarding your knee at [phone]. Patient Instructions: Antibiotic Form Stand Alone Forms: General Discharge Information Follow-up/Referrals: Filippo Ca MD [Physician] - Keep Reg. Scheduled Appt. Discharge Medications: New oxycodone-acetaminophen 5-325 mg Tablet 1 - 2 tablet PO Q4-6H PRN (Reason: pain) Qty: 48 0RF aspirin 325 mg Tablet,Delayed Release (Dr/Ec) 325 mg PO Q12HR 28 Days Qty: 56 0RF Continued ferrous sulfate 325 mg (65 mg iron) Capsule, Extended Release 325 mg PO EVERY OTHER DAY tranexamic acid 650 mg Tablet 1,300 mg PO TID multivit with min-folic acid 150 mcg Tablet,Chewable 2 tablet PO DAILY Ocuvite Adult 50 Plus 250 mg (90 mg-160 mg) Capsule 1 cap PO DAILY Discontinued chlorhexidine gluconate [Hibiclens] 4 % liquid 1 applic topical DAILY Qty: 237 0RF Rx Instructions: cleanse operative extremity every day for 7 days prior to procedure
[2024-04-18 09:53] LABS: Glucose Point of Care 160 mg/dl (65-105)
[2024-04-18] MEDS: SODIUM CHLORIDE 0.9% IV 500 ML 999 ML IV CONT (11:25)
--- NOTE | 2024-04-18 14:33 | P.PNAN_ITS ---
Anes - Prog Note Post-Op Date/Time: 04/18/24 14:33 Cardiovascular status: normal (reports vasovegal episode with PT this AM) Respiratory status: normal Airway patency: baseline Mental status: baseline Post-Op hydration status: normal Vital Signs: Last Vital Signs Temp 36.6 C 04/18/24 12:32 Pulse 86 04/18/24 13:52 Resp 16 04/18/24 13:52 BP 134/75 04/18/24 13:52 Pulse Ox 100 04/18/24 13:52 O2 Del Method Room Air 04/18/24 11:45 O2 Flow Rate 6 04/17/24 13:55 Pain Score (VAS): 07/08 I/O: Intake & Output 04/17/24 04/18/24 04/18/24 23:59 07:59 15:59 Intake Total 290 50 240 Balance 290 50 240 Laboratory Tests 04/18/24 05:26 04/18/24 05:26 04/18/24 04/18/24 04/18/24 05:26 09:32 09:50 WBC 9.8 RBC 3.22 L Hgb 8.5 L Hct 27.3 L MCV 84.8 MCH 26.4 MCHC 31.1 L RDW 18.7 H Plt Count 268 MPV 10.5 H Immature Gran % (Auto) 0.4 Neut % (Auto) 67.4 Lymph % (Auto) 21.8 [place] % (Auto) 9.4 H Eos % (Auto) 0.5 Baso % (Auto) 0.5 Lymph # (Auto) 2.14 [place] # (Auto) 0.9 H Eos # (Auto) 0.1 Baso # (Auto) 0.1 Abs Immat Gran (auto) 0.04 H Absolute Neuts (auto) 6.6 Absolute Nucleated RBC 0.000 Nucleated RBC % 0.0 Sodium 134 L Potassium 3.7 Chloride 105 Carbon Dioxide 27 Anion Gap 2 L BUN 10 Creatinine 0.70 Estim Creat Clear Calc 84 Estimated GFR > 60 Glucose 111 H POC Capillary Glucose 77 160 H Calcium 8.2 L Post-procedural complaints: none Patient Feedback: Patient satisfied with anesthetic care.
--- NOTE | 2024-04-18 15:33 | P.CONIM_ITS ---
Assessment and Plan Assessment and plan (1) S/P total knee arthroplasty: Qualifiers: Laterality: left Qualified Code(s): Z96.652 - Presence of left artificial knee joint Code(s): Z96.659 - Presence of unspecified artificial knee joint Status: Acute Assessment and Plan: * patient is postop day 0 from total knee replacement with Dr. Ca * continue incentive spirometer q.2 hours while awake * apply ice and elevate as needed * continue pain control * continue nausea control * continue Tyron hose * full weight-bearing as tolerated * PT and OT ordered * plan is to go home tomorrow with outpatient PT and OT (2) Orthostatic hypotension: Code(s): I95.1 - Orthostatic hypotension Status: Acute Assessment and Plan: * patient had an episode of orthostatic hypotension when getting up for the 1st time today postsurgical. She has history of having this happened 1 other time after getting anesthesia for her hip replacement. * continue to monitor or orthostatic blood pressures Q shift * continue IV fluids for now HPI Date of Consult Consult date: 04/18/24 Requesting Physician: Filippo Ca MD Primary Care Provider: Marlena Weinberg Consult Narrative Narrative: Katarina Choi is a 54 year old female no significant past medical history who presented to the hospital for an elective left total knee replacement with Dr. Ca. Initial labs showed a normal white blood cell count of 9.8, hemoglobin 8.5, sodium 134, blood sugar ranging 111-160. Patient denies any fever, chills, nausea, vomiting, diarrhea, abdominal pain, chest pain, shortness a breath. patient reported that this morning with therapy she became orthostatic and passed out and a rapid was called. she states she woke up do a bunch of people standing around her in the put her back to bed. She has had this happened to her one other time at when she had her hip replaced and it was after having anesthesia. She denies any other events today. We were consulted for medical management. Review of Systems Review of Systems: All systems reviewed & are unremarkable except as noted in HPI and below Constitutional: Constitutional: Reports as per HPI and Reports no additional constitutional complaints Eyes: Eyes: Reports as per HPI and Reports no additional eye complaints ENT: Reports system reviewed and no additional complaints, except as documented and Reports as per HPI Cardiovascular: Cardiovascular: Reports as per HPI and Reports no additional cardiovascular complaints Respiratory: Respiratory: Reports as per HPI and Reports no additional respiratory complaints Gastrointestinal: Gastrointestinal: Reports as per HPI and Reports no additional gastrointestinal complaints Genitourinary: Genitourinary: Reports no additional female genitourinary complaints and Reports as per HPI Musculoskeletal: Musculoskeletal: Reports no additional musculoskeletal complaints and Reports as per HPI Integumentary/Breasts: Skin/Breast: Reports system reviewed and no additional complaints, except as docu and Reports as per HPI Neurologic: Reports system reviewed and no additional complaints, except as documented and Reports as per HPI Psychiatric: Psychiatric: Reports no additional psychiatric complaints and Reports as per HPI [facility] Past Medical History Medical History Hip pain Vision loss Surgical History Surgical History H/O LEEP History of colonoscopy 11/22/21 - repeat 10 years History of hip surgery right side 01/07/19 Left ACL tear [id number] Lump of right breast may 2009 S/P total knee arthroplasty Family History Family History Father Family history of Parkinson's disease Mother Thyroid disorder Sibling Thyroid disorder Grandparent Heart disease Thyroid disorder Other Family history of cardiovascular disease Family history of thyroid disease Social History Social History Smoking status: Never smoker Second hand tobacco smoke exposure: No Alcohol intake: never Drinks per week: 2 Alcohol use details: beer Substance use: never Substance use type: does not use Do You Feel Safe in your Home?: Yes Lack of Transportation: No Lack of Food: Never True Current Housing: I Have Housing Concerned About Future Housing: No Difficulty Paying Gas/Electric Bills: No Difficulty Paying for Meds: No Currently Unemployed: No Education: Associate Degree Difficulty w/ Childcare or Family Care: No Living arrangements: with family Additional living arrangements comments: SPOUSE & DAUGHTER Occupation/Education: occupation Gender identity (if verbalized by the patient): Female Spiritual care concerns: No Agree to blood products: Yes Meds Home Medications and Allergies Home Medications Medication Instructions Recorded Confirmed Type ferrous sulfate 325 mg (65 mg 325 mg PO EVERY OTHER DAY 04/05/24 04/17/24 History iron) capsule,extended release [id number]- 250 mg-dha 90 1 cap PO DAILY 04/05/24 04/17/24 History mg-epa 160 [id number] capsule (Ocuvite Adult 50 Plus) multivitamin with minerals-folic 2 tablet PO DAILY 04/05/24 04/17/24 History acid 150 mcg chewable tablet tranexamic acid 650 mg tablet 1,300 mg PO TID 04/05/24 04/17/24 History aspirin 325 mg tablet,delayed 325 mg PO Q12HR 28 days #56 tabs 04/18/24 Rx release oxycodone-acetaminophen 5 mg-325 1 - 2 tablet PO Q4-6H PRN pain #48 04/18/24 Rx mg tablet tabs Allergies Allergy/AdvReac Type Severity Reaction Status Date / Time No Known Allergies Allergy Verified 04/17/24 08:38 Vital Signs Vital Signs - 24 hr 04/17/24 15:41 04/17/24 16:32 04/17/24 20:00 Temperature 98 F Pulse Rate 64 Respiratory Rate 12 Blood Pressure 121/74 Pulse Oximetry 100 Oxygen Delivery Room Air Room Air 04/17/24 20:32 04/18/24 00:32 04/18/24 04:32 Temperature 97.5 F L 98.6 F 98.0 F Pulse Rate 64 67 71 Respiratory Rate 18 18 18 Blood Pressure 128/67 104/52 L 107/54 L Pulse Oximetry 100 98 98 Oxygen Delivery 04/18/24 08:57 04/18/24 09:40 04/18/24 08:10 Temperature Pulse Rate 64 Respiratory Rate Blood Pressure 125/57 L Pulse Oximetry 100 Oxygen Delivery Room Air Room Air Room Air 04/18/24 08:32 04/18/24 10:24 04/18/24 10:57 Temperature 98.1 F Pulse Rate 63 60 65 Respiratory Rate 14 16 16 Blood Pressure 126/57 L 94/52 L 110/42 L Pulse Oximetry 100 100 100 Oxygen Delivery 04/18/24 10:57 04/18/24 11:45 04/18/24 12:32 Temperature 97.8 F Pulse Rate 65 84 Respiratory Rate 16 16 Blood Pressure 98/64 L 124/56 L Pulse Oximetry 100 100 Oxygen Delivery Room Air 04/18/24 13:00 11/21/24 13:52 04/18/24 13:52 Temperature Pulse Rate 84 78 86 Respiratory Rate 16 16 16 Blood Pressure 124/56 L 132/67 134/75 Pulse Oximetry 100 100 100 Oxygen Delivery Exam Narrative: General: In no acute distress, well nourished Head: atraumatic, no encephalopathy Eyes: EOMI, PERRLA, sclera clear ENT: moist mucous membranes, nasal passages clear Neck: supple, no JVD, no adenopathy, trachea midline Cardiac: Normal S1 and S2. RRR, No murmur, gallops or friction rubs, peripheral pulses intact. Respiratory: Lungs clear to auscultation, no adventitious lung sounds, currently on room air Gastrointestinal: soft, non-distended, non-tender, normoactive bowel sounds. : voiding without difficulty. Extremities:Limited ROM of left knee, No swelling Skin: surgical incision andOR dressing in place to the left anterior knee Neuro: Alert and oriented x4, cranial nerves intact, no neuro deficits. Psych: normal mood, normal affect, interactive Results Labs 04/18/24 05:26 04/18/24 05:26 Labs: Short CBC 04/18/24 Range/Units 05:26 WBC 9.8 (4.5-10.0) K/mm3 Hgb 8.5 L (12.0-15.0) g/dL Hct 27.3 L (37.0-47.0) % Plt Count 268 (150-375) k/mm3 BMP 04/18/24 05:26 Sodium 134 L Potassium 3.7 Chloride 105 Carbon Dioxide 27 BUN 10 Creatinine 0.70 Glucose 111 H Calcium 8.2 L Imaging Radiologist's impression: [id number] Ordering provider: Filippo Ca MD History: . POST-OP, LEFT TKA . Comparison: None. FINDINGS: BONES: No acute fracture or dislocation. A screw is seen most likely previous ACL reconstruction. JOINT SPACES: Total knee arthroplasty. SOFT TISSUES: Postoperative changes in the soft tissues. IMPRESSION: No acute osseous abnormality left knee. Total knee arthroplasty. Reviewed, dictated and finalized at location A. ITALITY INTERN Quality VTE Prophylaxis VTE prophylaxis: mechanical ordered and pharmacologic ordered ( aspirin) Hospitalist MIPS Advance Care Plan I have confirmed that the patient's Advanced Care Plan is present, code status i s documented, or surrogate decision maker is listed in patient medical record.: Yes Medication Reconciliation I have utilized all available resources to obtain, update and review the patients current medications (includes all prescriptions, OTC, herbals, cannabis, and nutritional supplements).: Yes
[2024-04-18] MEDS: ACETAMINOPHEN 500 MG TABLET PO (21:22)
--- NOTE | 2024-04-18 21:57 | PC.NURSE ---
pt resting comfortably on room air. neurovascular check WNL. iv patent, TEDS and SCDs on, cryocuff in use, and tele monitor in place. pt complaining of pain but states she would rather take tylenol than percocet
[2024-04-19] VITALS (12 sets, daily range): BP systolic 63–137; BP diastolic 36–71; PULSE 64–112; RESP 14–18; TEMP 36.6–36.9; O2SAT 98–100
[2024-04-19] MEDS: oxyCODONE/ACETAMINOPHEN (*CRX) 5-325 MG TABLET 1 TABLET PO (08:08)
--- NOTE | 2024-04-19 08:42 | PC.NURSE ---
RN called to room. Patient stating they are feeling dizzy. Patient received pain medication and started working with therapy. Upon arrival to room, patient found sitting in chair. Vitals obtained and initial blood pressure of 64/36. Patient returned to bed and placed into a supine position. Blood pressure then retaken manually and noted to be 86/50. Call out to Dr. Ca and voicemail left.
[2024-04-19 08:43] LABS: Glucose Point of Care 136 mg/dl (65-105)
--- NOTE | 2024-04-19 08:50 | PCOTNOTE ---
The patient treatment was not able to be completed. Not appropriate at this time confirm with RN. Issues with low BP. Will plan to continue treatment per plan of care.
--- NOTE | 2024-04-19 09:02 | ECG_ITS ---
Test Date: 2024-04-19 10:00:52 Measurements Intervals [place] Rate: 82 P: 44 [place]: 116 QRS: 47 QRSD: 106 T: 53 QT: 368 QTc: 432 Interpretive Statements SINUS RHYTHM WITH SHORT [place] INTERVAL INCOMPLETE RIGHT BUNDLE BRANCH BLOCK NONSPECIFIC ST & T-WAVE ABNORMALITY- ANT/INF LEADS BORDERLINE ECG No previous ECG available for comparison Electronically Signed On 04-19-2024 10:04:36 PICK UP ATTENDANT by Yves Gloria D.O.
[2024-04-19] MEDS: MULTIVITS W-FE,MIN CHEWABLE TABLET 2 TABLET PO (09:43)
[2024-04-19] MEDS: ASPIRIN 325 MG ENTERIC TABLET PO (09:44)
[2024-04-19] MEDS: SENNA/DOCUSATE SODIUM TABLET 2 TAB PO (09:44)
[2024-04-19] MEDS: FERROUS SULFATE 325 MG TABLET DR BY MOUTH (09:44)
[2024-04-19] MEDS: polyethylene glycoL 3350 17 GM POWD.PACK PO (09:45)
[2024-04-19] MEDS: FAMOTIDINE 20 MG TABLET PO (09:45)
--- NOTE | 2024-04-19 13:30 | PM.PNORT ---
Progress Note: A&P Assessment and Plan (1) S/P total knee arthroplasty: Qualifiers: Laterality: left Qualified Code(s): Z96.652 - Presence of left artificial knee joint Code(s): Z96.659 - Presence of unspecified artificial knee joint Status: Acute Assessment and Plan: POD 2 IMPROVING. WE WILL WAIT FOR HER AFTERNOON SESSION OF PT IN ORDER TO ASSESS HER CAPACITY TO BE DISCHARGED THIS AFTERNOON. IF SHE HAS ANOTHER EPISODE OF HYPOTENSION THEN SHE WILL REMAIN OVERNIGHT. ARE AWAITING INTERNAL MEDICINE VISIT TODAY FOR OPINION Subjective Subjective Date/Time Seen: 04/19/24 13:30 Interval history: POD 2 SHE HAD ANOTHER SYNCOPAL EPISODE. IT MAY BE DUE TO HER PERCOCET. THIS HAS HAPPENED ON OTHER OCCASIONS AND YESTERDAY IT COINCIDED WITH THE TIME SHE RECEIVED HER MEDICINE YESTERDAY. SHE CURRENTLY FEELS LINE. HER BP HAS REMAINED STABLE. SHE HAD OT AND WALKED TO THE BATHROOM AND BACK WITH NO PROBLEMS. HER PAIN HAS BEEN WELL CONTROLLED Exam Extrem: Other: VSS AFEBRILE DRESSING DRY NV INTACT NEG HOMANS SIGN, THIGH AND CALF NON TENDER Objective Data Vital Signs Vital Signs: Vital Signs - 24 hr 04/18/24 13:52 04/18/24 13:52 04/18/24 16:00 Temperature Pulse Rate 78 86 86 Respiratory Rate 16 16 Blood Pressure 132/67 134/75 Pulse Oximetry 100 100 Oxygen Delivery 04/18/24 16:32 04/18/24 20:00 04/18/24 22:12 Temperature 36.4 C 36.4 C L Pulse Rate 89 89 Respiratory Rate 14 14 Blood Pressure 128/61 131/60 Pulse Oximetry 100 99 Oxygen Delivery Room Air 04/19/24 00:40 04/18/24 20:00 04/19/24 00:00 Temperature 36.9 C Pulse Rate 86 80 87 Respiratory Rate 14 Blood Pressure 125/64 Pulse Oximetry 98 Oxygen Delivery 04/19/24 04:00 04/19/24 05:26 04/19/24 08:40 Temperature 36.8 C Pulse Rate 81 84 64 Respiratory Rate 16 18 Blood Pressure 127/68 63/36 L Pulse Oximetry 100 100 Oxygen Delivery 04/19/24 08:45 04/19/24 09:09 04/19/24 08:06 Temperature Pulse Rate 78 Respiratory Rate 18 Blood Pressure 86/48 L 118/62 Pulse Oximetry 100 Oxygen Delivery Room Air 04/19/24 08:00 04/19/24 12:00 Temperature Pulse Rate 89 83 Respiratory Rate Blood Pressure Pulse Oximetry Oxygen Delivery Intake/Output Intake/Output: Intake & Output 04/16/24 04/17/24 04/18/24 04/19/24 23:59 23:59 23:59 23:59 Intake Total 490 650 140 Balance 490 650 140 Meds/Results Medications: Active Medications Generic Name Dose Route Start Last Admin Trade Name Freq PRN Reason Stop Dose Admin Acetaminophen 500 mg 04/17/24 14:47 04/18/24 21:22 Acetaminophen 500 Mg Tablet PO 500 mg Q6H PRN Administration Pain Rated 1-3 Aspirin 325 mg 04/17/24 21:00 04/19/24 09:44 Aspirin 325 Mg Enteric Tablet PO 325 mg Q12HR DANNY Administration Diazepam 5 mg 04/17/24 14:47 Diazepam (*Crx) 5 Mg Tablet PO Q8H PRN Spasms Diphenhydramine HCl 25 mg 04/17/24 14:47 Diphenhydramine Hcl Inj 50 Mg/Ml Vial IV PUSH Q6H PRN Itching Famotidine 20 mg 04/17/24 21:00 04/19/24 09:45 Famotidine 20 Mg Tablet PO 20 mg Q12HR DANNY Administration Ferrous Sulfate 325 mg 04/19/24 08:00 04/19/24 09:44 Ferrous Sulfate [address] BY MOUTH 325 mg Q48H DANNY Administration Hydromorphone HCl 1 mg 04/17/24 14:47 Hydromorphone Hcl Inj (*Crx) 1 Mg/Ml Syr IV PUSH Q2H PRN Breakthrough Pain Rated 7-10 or NPO Hydromorphone HCl 0.5 mg 04/17/24 14:47 Hydromorphone Hcl Inj (*Crx) 1 Mg/Ml Syr IV PUSH Q2H PRN Breakthrough Pain Rated 4-6 or NPO Ibuprofen 800 mg in 200 mls @ 400 mls/hr 04/17/24 14:47 Caldolor 800 Mg/200 Ml IVPB Q6H PRN Breakthrough Pain Rated 1-3 or NPO Multivitamins/Minerals 2 tablet 04/19/24 09:00 04/19/24 09:43 Multivits W-Fe,Min Chewable Tablet PO 2 tablet DAILY DANNY Administration Naloxone HCl 0.1 mg 04/17/24 14:47 Naloxone Hcl 0.4 Mg/Ml Vial IV PUSH Q2M PRN Opiate Reversal Ondansetron HCl 4 mg 04/17/24 14:47 Ondansetron Inj 4 Mg/2 Ml Vial IV PUSH Q4H PRN Nausea And Vomiting Oxycodone/Acetaminophen 1 tablet 04/17/24 14:47 04/19/24 08:08 Oxycodone/Acetaminophen (*Crx) 5-325 Mg Tablet PO 1 tablet Q4H PRN Administration Pain Rated 4-6 Oxycodone/Acetaminophen 1 tab 04/17/24 14:47 Oxycodone/Acetaminophen (*Crx) 10-325 Mg Tablet PO Q6H PRN Pain Rated 7-10 Polyethylene Glycol 17 gm 04/18/24 09:00 04/19/24 09:45 Polyethylene Glycol 3350 17 Gm Powd.Pack PO 17 gm QAM DANNY Administration Senna/Docusate Sodium 2 tab 04/17/24 17:00 04/19/24 09:44 Senna/Docusate Sodium Tablet PO 2 tab BID DANNY Administration Radiology Results: ITS Impressions Knee X-Ray 04/17/24 14:15 IMPRESSION: No acute osseous abnormality left knee. Total knee arthroplasty. Labs Labs: Laboratory Results - last 24 hr 04/19/24 08:40 POC Capillary Glucose 136 H
--- NOTE | 2024-04-19 13:37 | P.PNIM_ITS ---
Progress Note: A&P Assessment and Plan (1) S/P total knee arthroplasty: Qualifiers: Laterality: left Qualified Code(s): Z96.652 - Presence of left artificial knee joint Code(s): Z96.659 - Presence of unspecified artificial knee joint Status: Acute Assessment and Plan: * patient is postop day 1 from total knee replacement with Dr. Ca * continue incentive spirometer q.2 hours while awake * apply ice and elevate as needed * continue pain control * continue nausea control * continue Tyron hose * full weight-bearing as tolerated * PT and OT ordered * plan is to go home tomorrow with outpatient PT and OT (2) Orthostatic hypotension: Code(s): I95.1 - Orthostatic hypotension Status: Acute Assessment and Plan: * patient had an episode of orthostatic hypotension when getting up for the 1st time today postsurgical. She has history of having this happened 1 other time after getting anesthesia for her hip replacement. * continue to monitor or orthostatic blood pressures Q shift * Patient still having orthostatic hypotension with moving from a lying to a sitting and sitting to standing. When she got up to the chair today she felt like she was going to pass out and they put her back to bed. Her blood pressure at that time was 63/36 and slowly improved to 118/62. * Continue Tyron hose * will discontinue Percocet Time Spent With Patient Time with patient: 25 - 35 minutes Subjective Date/time seen: 04/19/24 13:37 Interval history: interval history: Katarina Choi is a 54 year old female no significant past medical history who presented to the hospital for an elective left total knee replacement with Dr. Ca. Initial labs showed a normal white blood cell count of 9.8, hemoglobin 8.5, sodium 134, blood sugar ranging 111-160. Patient denies any fever, chills, nausea, vomiting, diarrhea, abdominal pain, chest pain, shortness a breath. patient reported that this morning with therapy she became orthostatic and passed out and a rapid was called. she states she woke up do a bunch of people standing around her in the put her back to bed. She has had this happened to her one other time at when she had her hip replaced and it was after having anesthesia. She denies any other events today. We were consulted for medical management. subjective: patient reports low blood pressures again today when getting up out of the bed. She states when she sat in a chair she felt like she was going to pass out. Her blood pressure was 63/36 by the time they got her back in the bed and she slowly came back up to 118/62. Labs reviewed. Review of Systems Review of Systems: All systems reviewed & are unremarkable except as noted in HPI and below Constitutional: Constitutional: Reports as per HPI and Reports no additional constitutional complaints Eyes: Eyes: Reports as per HPI and Reports no additional eye complaints ENT: Reports system reviewed and no additional complaints, except as documented and Reports as per HPI Cardiovascular: Cardiovascular: Reports as per HPI and Reports no additional cardiovascular complaints Respiratory: Respiratory: Reports as per HPI and Reports no additional respiratory complaints Gastrointestinal: Gastrointestinal: Reports as per HPI and Reports no additional gastrointestinal complaints Genitourinary: Genitourinary: Reports no additional female genitourinary complaints and Reports as per HPI Musculoskeletal: Musculoskeletal: Reports no additional musculoskeletal co mplaints and Reports as per HPI Integumentary/Breasts: Skin/Breast: Reports system reviewed and no additional complaints, except as docu and Reports as per HPI Neurologic: Reports system reviewed and no additional complaints, except as documented and Reports as per HPI Psychiatric: Psychiatric: Reports no additional psychiatric complaints and Reports as per HPI Exam Narrative: General: In no acute distress, well nourished Cardiac: Normal S1 and S2. RRR, No murmur, gallops or friction rubs, peripheral pulses intact. Respiratory: Lungs clear to auscultation, no adventitious lung sounds, currently on room air Gastrointestinal: soft, non-distended, non-tender, normoactive bowel sounds. : voiding without difficulty. Extremities:Limited ROM of left knee, No swelling Skin: surgical incision andOR dressing in place to the left anterior knee Neuro: Alert and oriented x4 Objective Data Vital Signs Vital Signs: Vital Signs - 24 hr 04/18/24 13:52 04/18/24 13:52 04/18/24 16:00 Temperature Pulse Rate 78 86 86 Respiratory Rate 16 16 Blood Pressure 132/67 134/75 Pulse Oximetry 100 100 Oxygen Delivery 04/18/24 16:32 04/18/24 20:00 04/18/24 22:12 Temperature 97.6 F 97.5 F L Pulse Rate 89 89 Respiratory Rate 14 14 Blood Pressure 128/61 131/60 Pulse Oximetry 100 99 Oxygen Delivery Room Air 04/19/24 00:40 04/18/24 20:00 04/19/24 00:00 Temperature 98.4 F Pulse Rate 86 80 87 Respiratory Rate 14 Blood Pressure 125/64 Pulse Oximetry 98 Oxygen Delivery 04/19/24 04:00 04/19/24 05:26 04/19/24 08:40 Temperature 98.3 F Pulse Rate 81 84 64 Respiratory Rate 16 18 Blood Pressure 127/68 63/36 L Pulse Oximetry 100 100 Oxygen Delivery 04/19/24 08:45 04/19/24 09:09 04/19/24 08:06 Temperature Pulse Rate 78 Respiratory Rate 18 Blood Pressure 86/48 L 118/62 Pulse Oximetry 100 Oxygen Delivery Room Air 04/19/24 08:00 04/19/24 12:00 Temperature Pulse Rate 89 83 Respiratory Rate Blood Pressure Pulse Oximetry Oxygen Delivery Intake/Output Intake/Output: Intake & Output 04/16/24 04/17/24 04/18/24 04/19/24 23:59 23:59 23:59 23:59 Intake Total 490 650 140 Balance 490 650 140 Meds/Results Medications: Active Medications Generic Name Dose Route Start Last Admin Trade Name Freq PRN Reason Stop Dose Admin Acetaminophen 500 mg 04/17/24 14:47 04/18/24 21:22 Acetaminophen 500 Mg Tablet PO 500 mg Q6H PRN Administration Pain Rated 1-3 Aspirin 325 mg 04/17/24 21:00 04/19/24 09:44 Aspirin 325 Mg Enteric Tablet PO 325 mg Q12HR DANNY Administration Diazepam 5 mg 04/17/24 14:47 Diazepam (*Crx) 5 Mg Tablet PO Q8H PRN Spasms Diphenhydramine HCl 25 mg 04/17/24 14:47 Diphenhydramine Hcl Inj 50 Mg/Ml Vial IV PUSH Q6H PRN Itching Famotidine 20 mg 04/17/24 21:00 04/19/24 09:45 Famotidine 20 Mg Tablet PO 20 mg Q12HR DANNY Administration Ferrous Sulfate 325 mg 04/19/24 08:00 04/19/24 09:44 Ferrous Sulfate [address] BY MOUTH 325 mg Q48H DANNY Administration Hydromorphone HCl 1 mg 04/17/24 14:47 Hydromorphone Hcl Inj (*Crx) 1 Mg/Ml Syr IV PUSH Q2H PRN Breakthrough Pain Rated 7-10 or NPO Hydromorphone HCl 0.5 mg 04/17/24 14:47 Hydromorphone Hcl Inj (*Crx) 1 Mg/Ml Syr IV PUSH Q2H PRN Breakthrough Pain Rated 4-6 or NPO Ibuprofen 800 mg in 200 mls @ 400 mls/hr 04/17/24 14:47 Caldolor 800 Mg/200 Ml IVPB Q6H PRN Breakthrough Pain Rated 1-3 or NPO Multivitamins/Minerals 2 tablet 04/19/24 09:00 04/19/24 09:43 Multivits W-Fe,Min Chewable Tablet PO 2 tablet DAILY DANNY Administration Naloxone HCl 0.1 mg 04/17/24 14:47 Naloxone Hcl 0.4 Mg/Ml Vial IV PUSH Q2M PRN Opiate Reversal Ondansetron HCl 4 mg 04/17/24 14:47 Ondansetron Inj 4 Mg/2 Ml Vial IV PUSH Q4H PRN Nausea And Vomiting Oxycodone/Acetaminophen 1 tablet 04/17/24 14:47 04/19/24 08:08 Oxycodone/Acetaminophen (*Crx) 5-325 Mg Tablet PO 1 tablet Q4H PRN Administration Pain Rated 4-6 Oxycodone/Acetaminophen 1 tab 04/17/24 14:47 Oxycodone/Acetaminophen (*Crx) 10-325 Mg Tablet PO Q6H PRN Pain Rated 7-10 Polyethylene Glycol 17 gm 04/18/24 09:00 04/19/24 09:45 Polyethylene Glycol 3350 17 Gm Powd.Pack PO 17 gm QAM DANNY Administration Senna/Docusate Sodium 2 tab 04/17/24 17:00 04/19/24 09:44 Senna/Docusate Sodium Tablet PO 2 tab BID DANNY Administration Radiology Results: ITS Impressions Knee X-Ray 04/17/24 14:15 IMPRESSION: No acute osseous abnormality left knee. Total knee arthroplasty. Labs Labs: Laboratory Results - last 24 hr 04/19/24 08:40 POC Capillary Glucose 136 H Quality VTE Prophylaxis VTE prophylaxis: mechanical ordered and pharmacologic ordered ( aspirin)
--- NOTE | 2024-04-19 13:38 | P.DS_ITS ---
DS: Admitting Diagnosis Discharge Date 04/19/24 Admitting Diagnosis LEFT KNEE DJD DS: Discharge Diagnosis Discharge Diagnosis (1) S/P total knee arthroplasty: Qualifiers: Laterality: left Qualified Code(s): Z96.652 - Presence of left artificial knee joint Code(s): Z96.659 - Presence of unspecified artificial knee joint Status: Acute DS: Summary Hospital Course Reason for hospitalization: LEFT TKA Hospital Course: PATIENT WAS ADMITTED S/P TOTAL KNEE ARTHROPLASTY FOR POSTOPERATIVE MEDICAL MANAGEMENT, PAIN CONTROL AND MOBILIZATION WITH PHYSICAL AND OCCUPATIONAL THERAPY. SHE HAD A FEW EPISODES OF ORTHOSTATIC HYPOTENSION AFTER RECEIVING PERCOCET AND WAS ADVISED TO REMAIN IN THE HOSPITAL FOR ANOTHER NIGHT PENDING HER PERFORMANCE IN PT AND RECURRING HYPOTENSION.THE PATIENT PROGRESSED WELL WITH PT/OT. LABS AND VITALS REMAINED STABLE AND PAIN WELL CONTROLLED. THE PATIENT HAS BEEN CLEARED TO BE DISCHARGED HOME. FOLLOW UP APPOINTMENT SCHEDULED. DISCHARGE INSTRUCTIONS DISCUSSED AT LENGTH WITH THE PATIENT. MEDICATIONS REVIEWED. Status at Discharge Cognitive/behavioral status at discharge: STABLE Time Spent with Patient Time attestation: Total time spent providing and/or coordinating discharge services: DS: Data Data Completed and Pending Labs on day of discharge: Labs from last 24 hours 04/19/24 08:40 POC Capillary Glucose 136 H Procedures/Treatments: LEFT TKA Discharge Plan Discharge Attending physician on discharge: Filippo Ca Consulting providers: Heather Ruelas Discharging Clinician: Filippo Ca Patient Disposition: Home Health Service Activity: may shower, no driving and follow weight bearing status Diet: as tolerated Wound Care Instructions: follow printed instructions Discharge Instructions: Per Care Coordination: Patient to have [facility] for RN/PT/OT eval bob eli [phone]. They will contact patient to arrange first visit. Post Op Total Knee Replacement Instructions Dr. Filippo Ca [phone] * Your dressing will be changed prior to your discharge. You will be sent home with one additional dressing to be changed on post op day 7 by the home health RN. Your noah will be removed on the 14th day after surgery and steri- strips will be placed. Please practice good hand hygiene and do not touch your incision in order to prevent infection. * You may shower with your dressing but do not submerge in a bath tub. * Do not drive or operate machinery until you are released by Dr. Ca. * Do not walk without a walker for any reason until you are released by Dr. Ca. * Continue to use your ice machine. Please use a towel or pillow case to p rotect your skin before applying your ice machine. * Do NOT place a pillow under your knee. You may use a pillow from the calf down if needed. This will prevent a flexion contracture postoperatively. * CPM: You may begin use of your CPM machine at home if you have been given one pre-operatively. DO NOT USE WHILE YOU ARE SLEEPING. * ROMTech: If you were given a ROMTech Portable Connect System preoperatively, you are to begin use on the day you arrive home postoperatively. Our goal is for you to use the machine 5 times per day. The sessions are very short in the beginning and will progress as you progress. We are able to monitor your progress from afar as well as your pain and other reported symptoms. If you have difficulties with the machine, please call . NOTE: Please attempt to use the machine even when in pain as this will plisse machine operator helper your therapy with very gentle motion. * Your first post op appointment was sent to you via mail preoperatively. If you have any questions or are unable to make your appointment, please contact our office for scheduling questions. * Your medications have been sent to your pharmacy. You have been sent home with pain medication. Please continuous pickling line pickler an over the counter stool softener to prevent constipation due to narcotic use. Please keep this in mind during your postoperative recovery. If you are not experiencing regular bowel movements, please contact our office for further instruction. * Please contact our office with any questions/concerns regarding your knee at [phone]. Patient Instructions: Antibiotic Form Stand Alone Forms: General Discharge Information Follow-up/Referrals: Filippo Ca MD [Physician] - Keep Reg. Scheduled Appt. Discharge Medications: New oxycodone-acetaminophen 5-325 mg Tablet 1 - 2 tablet PO Q4-6H PRN (Reason: pain) Qty: 48 0RF aspirin 325 mg Tablet,Delayed Release (Dr/Ec) 325 mg PO Q12HR 28 Days Qty: 56 0RF ketorolac 10 mg tablet 10 mg PO Q8H PRN (Reason: pain) Qty: 14 0RF Rx Instructions: maximum total duration of 5 days from all oral, intranasal, or parenteral formulations Continued ferrous sulfate 325 mg (65 mg iron) Capsule, Extended Release 325 mg PO EVERY OTHER DAY tranexamic acid 650 mg Tablet 1,300 mg PO TID multivit with min-folic acid 150 mcg Tablet,Chewable 2 tablet PO DAILY Ocuvite Adult 50 Plus 250 mg (90 mg-160 mg) Capsule 1 cap PO DAILY Discontinued chlorhexidine gluconate [Hibiclens] 4 % liquid 1 applic topical DAILY Qty: 237 0RF Rx Instructions: cleanse operative extremity every day for 7 days prior to procedure Date of admission: 04/18/24 14:56 Primary Care Provider: Marlena Weinberg Admitting Provider: Filippo Ca Attending physician on admission: Filippo Ca Condition: Stable
== END 2024-04-19 15:43 | disposition home health service (06) ==
LOC: ANHSURGERY 16:17 → ANH2MED 16:17
PROVIDERS: Admitting Provider Orthopaedic Surgery; Visit Provider Orthopaedic Surgery
PROC: (CPT 27447; principal; 2024-04-17 10:30)
DX: M17.32 Unilateral post-traumatic osteoarthritis, left knee (principal); Z18.89 Other specified retained foreign body fragments; G89.18 Other acute postprocedural pain; I95.1 Orthostatic hypotension; Z98.890 Other specified postprocedural states
CPT/HCPCS: 27447; 20680; 64447; 36415; 73560; 80048; 82948; 85025; 93005; 97110; 97116; 97161; 97165; 97530; 97535; A9270; C1776; G0378; J0171; J0690; J1100; J1171; J1596; J1885; J2003; J2250; J2270; J2405; J2704; J2795; J3010; J7030; J7120